=== PATIENT | male | born 1955 | race Caucasian/White ===

== ENCOUNTER 2019-10-05 10:21 | Emergency (ER) | payer BC ==
[~2019-10-05] VITALS: Ht 172.7 cm; Wt 86.2 kg
[~2019-10-05 10:21] MED LIST: Advil200 M1; CIPR500; Daily Multiple1 EACH; FISH1000; GABA600; HYDR1TAB94 PO; IBUP600 PO; IBUP800 PO; METPRE4DP PO
[2019-10-05] MEDS ORDERED: Percocet 5-3251 EACH PO (13:03)
[2019-10-05] MEDS ORDERED: Cyclobenzaprine5 MG PO (13:03)
== END 2019-10-05 13:44 | disposition home or self-care (01) ==
LOC: ER 10:21
DX: M51.16 Intervertebral disc disorders with radiculopathy, lumbar region (principal); Z87.891 Personal history of nicotine dependence
CPT/HCPCS: 99283